=== PATIENT | female | born 1995 | race Asian ===

== ENCOUNTER 2016-11-17 20:32 | Emergency (ER) | payer OTHER ==
[2016-11-17 20:40] VITALS: BP 105/71; PULSE 84; RESP 16; TEMP 98.2; O2SAT 96
--- NOTE | 2016-11-17 21:04 | EDPHY ---
HPI/HX/ROS/PE/MDM Narrative: CHIEF COMPLAINT: Right elbow injury HPI: The patient is a 21 y/o female arriving at the request of her employer for evaluation of right elbow and leg pain following a fall in the shower yesterday morning. Her elbow pain is aggravated by extension of her arm but not with pronation or supination, She has a contusion on the lateral aspect of her left thigh. She denies striking her head, loss of consciousness, midline spinous pain , chest pain, abdominal pain, pelvic pain, or other injuries. No weakness or paresthesias. She is normally healthy. REVIEW OF SYSTEMS: Aside from elements discussed in the HPI, a comprehensive 10-point review of systems was reviewed and is negative. PMH: Denies SOCIAL HISTORY: Employed by [employer] PHYSICAL EXAM: General:Patient is alert, in no acute distress. ENT:Eyes are normal to inspection. ENT inspection normal. Neck: Normal inspection. Full range of motion. Respiratory:No respiratory distress. Breath sounds normal bilaterally. Cardiovascular: Regular rate and rhythm. Strong peripheral pulses. Normal cap refill. Abdomen:The abdomen is nontender to palpation. There are no peritoneal signs. Back: Normal to inspection. No tenderness to palpation. Skin: Normal color. No rash. Warm and dry. Extremities: Contusion to left thigh about 10cm. Normal appearance. Full range of motion. Neuro: Oriented x3. Normal motor function. Normal sensory function. ED Course: This is a healthy 21 y/o female who presents for evaluation of elbow pain after a fall in the shower yesterday. She has no clinical signs of radial head fracture on exam. She has a 10cm contusion to her left thigh. Her elbow x-ray is negative for fracture. I discussed these findings and recommended standard contusion care instructions. Advised her to follow up as directed by her HR department. Return precautions given. - Data Points Imaging Results: Imaging Impressions Elbow X-Ray 11/17/16 20:45 Impression: Negative for fracture. Imaging: I viewed and interpreted images myself General Time Seen by Provider: 11/17/16 20:45 Initial Vital Signs: Initial Vital Signs Temperature (C) 36.8 C 11/17/16 20:37 Heart Rate 84 11/17/16 20:37 Respiratory Rate 16 11/17/16 20:37 Blood Pressure 105/71 11/17/16 20:37 O2 Sat (%) 96 11/17/16 20:37 O2 Delivery Mode Room Air Allergies/Adverse Reactions: No Known Allergies Allergy (Verified 11/17/16 20:36) Home Medications: Medication Instructions Recorded Acne Medication 11/17/16 Departure - Departure Disposition: Home, Routine, Self-Care Clinical Impression: Contusion of left thigh Qualifiers: Encounter type: initial encounter Qualified Code(s): S70.12XA - Contusion of left thigh, initial encounter Contusion, elbow Qualifiers: Encounter type: initial encounter Laterality: right Qualified Code(s): S50.01XA - Contusion of right elbow, initial encounter Condition: Good Instructions: Contusion in Adults (ED) Additional Instructions: 1. Take 600mg ibuprofen every 6-8 hours as needed for pain for the next few days. 2. Apply ice to sore areas. 3. Follow up with workman's comp as directed by your HR department. Referrals: Shanice Murguia [Primary Care Provider] - As per Instructions Report Scribed for: Jose Zapata Report Scribed by: Raven Ross Date of Report: 11/17/16 Time of Report: 21:02 Physician Review and Approval Statement: Portions of this note were transcribed by an ED scribe. I personally performed the history, physical exam, and medical decision making; and confirm the accuracy of the information in the transcribed note.
== END 2016-11-17 21:13 | disposition home or self-care (01) ==
DX: S50.01XA Contusion of right elbow, initial encounter (principal); S70.12XA Contusion of left thigh, initial encounter; W18.2XXA Fall in (into) shower or empty bathtub, initial encounter; Y99.0 Civilian activity done for income or pay

== ENCOUNTER 2017-04-12 21:15 | Emergency (ER) | payer MEDICAID, OTHER ==
[2017-04-12 21:21] VITALS: TEMP 98.1
[2017-04-12] MEDS ORDERED: LET GEL TOPICAL 1 EA SYR TP ONE (21:21)
--- NOTE | 2017-04-12 22:33 | EDPHY ---
General Narrative: CHIEF COMPLAINT: Facial laceration, car door and HISTORY OF PRESENT ILLNESS: Patient presents with complaints of laceration to the face. She said around 9: 00 p.m. she was opening her car door and struck herself in the face. No loss of consciousness. She does have a headache. She sustained a laceration over the right eyebrow. Minimal bleeding. No difficulty moving the forehead over the eyebrow. No eye pain. No vomiting. No neck pain. No injury elsewhere. Tetanus is up-to-date. Symptoms improving after ibuprofen. No other associated complaints or modifying factors. TIME OF INJURY: 9:00 p.m. this evening TETANUS STATUS: Up-to-date less than 6 years ago MEDICAL/SURGICAL/SOCIAL HISTORY: No significant medical history. Originally from [place]. Lives in [place] the past 10 years REVIEW OF SYSTEMS: Ten systems reviewed and are negative unless otherwise noted in the HPI EXAMINATION General Appearance: Alert, no distress HEENT: Head is normocephalic. Laceration over the right eyebrow, 1.25 cm. No involvement of the galea or frontalis. No foreign body. No León sign. No raccoon eyes. Neck: Supple nontender. No crepitus, step-off or deformity. Painless range of motion all planes Cardiovascular: Pulses normal throughout. Brisk cap refill Neurological: GCS 15. A&O, sensory symmetric, strength symmetric. Normal steady gait Skin: Warm and dry, no rash. 1.25 cm laceration. This is just over the right eyebrow. No involvement of the eyelid. Vertical orientation. No exposure of the galea or frontalis. No foreign body. Extremities: Nontender, no pedal edema DIFFERENTIAL DIAGNOSES: Including but not limited to simple laceration, complex laceration concussion intracranial hemorrhage, basilar skull fracture MDM: 10:05 p.m. Laceration to the right forehead just above the eyebrow. No involvement of the eyebrow. No involvement of the galea or frontalis muscle. She is fully intact. No indication for CT scan of the head based on clinical exam, history and the [place] CT head rules. Irrigation has been anesthetized and irrigated. I will proceed with suture repair. 10:30 p.m. Simple laceration that has been repaired without difficulty. Tolerated well with excellent approximation of the wound borders. Wound care discussed. Return to ED in 5-7 days for suture removal. ED precautions discussed regarding her closed head injury. She is discharged in stable condition. PROCEDURE: Laceration repair Consent: Verbal Location: Right-sided forehead, just above the eyebrow Length of repair: 1.25 cm Complexity: Simple Layer involvement: Single Anesthesia: Local. 1% lidocaine plain. 3 mL Irrigation: Extensive Debridement: None Procedure description: Following good anesthesia, the wound was copiously irrigated. Wound bed was explored with a sterile glove, and there is no foreign body noted. No involvement of the frontalis or galea. Wound borders were approximated well with good hemostasis. Tolerated well without complication. Suture/Staple material: 7-0 Prolene, 2 simple interrupted sutures Wound care: Routine as discussed Suture/Staple removal: 5-7Days SUPERVISION: This patient was independently evaluated without direct involvement of or examination by the attending physician. ED Precautions: Worsening pain. Erythema, edema, cyanosis, pallor, paresthesia or anesthesia. - History Smoking Status: Never smoked - Objective Vital Signs: Initial Vital Signs Temperature (C) 98.1 F 04/12/17 21:19 Heart Rate 78 04/12/17 21:19 Respiratory Rate 16 04/12/17 21:19 Blood Pressure 114/62 04/12/17 21:19 O2 Sat (%) 96 04/12/17 21:19 O2 Delivery Mode Room Air Allergies/Adverse Reactions: No Known Allergies Allergy (Verified 04/12/17 21:18) Home Medications: Medication Instructions Recorded Acne Medication 11/17/16 Medications Given: Discontinued Medications Tetracaine/Epinephrine/Lidocaine (Let Gel Topical) 1 ea TP EDNOW ONE Stop: 04/12/17 21:22 Last Admin: 04/12/17 21:25 Dose: 1 ea Departure - Departure Disposition: Home, Routine, Self-Care Clinical Impression: Forehead laceration Qualifiers: Encounter type: initial encounter Qualified Code(s): S01.81XA - Laceration without foreign body of other part of head, initial encounter Closed head injury Qualifiers: Encounter type: initial encounter Qualified Code(s): S09.90XA - Unspecified injury of head, initial encounter Condition: Good Instructions: Laceration (ED), Care For Your Stitches (ED), Facial Laceration ( ED) Additional Instructions: 1. Daily wound care as discussed 2. ED precautions for head injury as discussed 3. Return to emergency department in 5-7 days for suture removal Referrals: Shanice Murguia [Primary Care Provider] - As per Instructions Physician,Emergency DeptMD [Medical Doctor] - As per Instructions (5-7 days for suture removal)
[2017-04-12 22:47] VITALS: BP 101/55; PULSE 77; RESP 12; O2SAT 97
== END 2017-04-12 22:44 | disposition home or self-care (01) ==
PROC: 0HQ1XZZ Repair Face Skin, External Approach (ICD-10-PCS; principal; 2017-04-12)
DX: S01.81XA Laceration without foreign body of other part of head, initial encounter (principal); W22.8XXA Striking against or struck by other objects, initial encounter